=== PATIENT | female | born 1980 | race Two or more races ===

== ENCOUNTER 2022-04-08 06:40 | Day surgery (SDC) | payer OTHER ==
[~2022-04-08] VITALS: Ht 162.6 cm; Wt 70.8 kg
[2022-04-08] MEDS ORDERED: IBU800 MG PO (10:02)
== END 2022-04-08 12:35 | disposition home or self-care (01) ==
LOC: CIR.AMB 06:40
PROVIDERS: ATTEND Obstetrics & Gynecology Gynecology
DX: Z30.2 Encounter for sterilization (principal); N83.8 Other noninflammatory disorders of ovary, fallopian tube and broad ligament; N83.11 Corpus luteum cyst of right ovary; Z20.822 Contact with and (suspected) exposure to COVID-19; Z88.0 Allergy status to penicillin